=== PATIENT | female | born 1960 | race Caucasian/White ===

== ENCOUNTER 2020-01-06 12:09 | Emergency (ER) | payer OTHER ==
[2020-01-06] MEDS ORDERED: Diphtheria,Pertussis(Acell),Tetanus Vaccine 0.5 ML SDV IM ONE (12:11)
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
== END 2020-01-06 15:23 | disposition home or self-care (01) ==
LOC: JP.ED 12:09
DX: S86.911A Strain of unspecified muscle(s) and tendon(s) at lower leg level, right leg, initial encounter (principal); S70.01XA Contusion of right hip, initial encounter; S70.11XA Contusion of right thigh, initial encounter; S60.512A Abrasion of left hand, initial encounter; Z88.1 Allergy status to other antibiotic agents; Z88.2 Allergy status to sulfonamides; Z79.899 Other long term (current) drug therapy; W19.XXXA Unspecified fall, initial encounter
CPT/HCPCS: 73502-26-RT; 73502-RT; 73552-26-LT; 73552-RT; 73560-26-RT; 73560-RT; 90471; 99283; 99283-25

== ENCOUNTER 2024-12-12 19:42 | Emergency (ER) | payer MEDICARE, BC | END 2024-12-12 21:17 | disposition home or self-care (01) | LOC: JP.ED 19:42 | DX: S09.90XA Unspecified injury of head, initial encounter (principal); Z88.0 Allergy status to penicillin; Z88.2 Allergy status to sulfonamides; Z88.8 Allergy status to other drugs, medicaments and biological substances; Z79.899 Other long term (current) drug therapy; W22.8XXA Striking against or struck by other objects, initial encounter | CPT/HCPCS: 70450; 70486; 99283 ==

== ENCOUNTER 2025-02-08 10:39 | Day surgery (SDC) | payer MEDICARE, BC ==
[~2025-02-08 10:39] MED LIST: Midazolam 1 MG/ML 2 ML SDV ONE; Propofol 200 MG/20 ML SDV ONE; fentaNYL 50 MCG/ML SDV ONE
[2025-02-08] MEDS: Lactated Ringers 1,000 ML IV SCH (11:34)
== END 2025-02-08 13:50 | disposition home or self-care (01) ==
LOC: JP.SDS 10:39
PROVIDERS: ATTEND Surgery
DX: Z12.11 Encounter for screening for malignant neoplasm of colon (principal); Z88.1 Allergy status to other antibiotic agents; Z88.8 Allergy status to other drugs, medicaments and biological substances; Z88.2 Allergy status to sulfonamides; Z79.899 Other long term (current) drug therapy
CPT/HCPCS: G0121; J2250; J2704; J7120; J3010